=== PATIENT | female | born 1970 | race Hispanic/Latino ===

== ENCOUNTER 2021-01-13 04:34 | Inpatient (IN) | payer OTHER, SELFPAY ==
[~2021-01-13] VITALS: Ht 170.2 cm; Wt 105.3 kg
[~2021-01-13 04:34] MED LIST: NAPR-1023 PO
[2021-01-13 04:51] LABS: APPEARANCE,URINE Clear (CLEAR); BILIRUBIN,URINE Negative (NEGATIVE); COLOR,URINE Yellow (YELLOW); GLUCOSE, URINE (UA) Negative (NEGATIVE); KETONES,URINE Negative (NEGATIVE); LEUKOCYTE ESTERASE ,URINE Moderate (NEGATIVE); NITRATE,URINE Negative (NEGATIVE); OCCULT BLOOD,URINE Negative (NEGATIVE); PROTEIN,URINE Negative (NEGATIVE); UROBILINOGEN,URINE 0.2 mg/dL (0.2-1.0)
[2021-01-13 05:00] LABS: BASOPHILS % (AUTO) 0.4 % (0.0-5.0); EOSINOPHILS % (AUTO) 0.1 % (0.0-8.0); HEMATOCRIT 45.2 % (36-48); LYMPHOCYTES % (AUTO) 5.8 % (21.0-51.0); MEAN CORPUSCULAR HEMOGLOBIN 28.5 pg (27.0-33.0); MEAN CORPUSCULAR HGB CONC 34.1 g/dL (32.0-36.0); MEAN CORPUSCULAR VOLUME 83.5 fL (79-99); NEUTROPHILS % (AUTO) 91.3 % (40.0-77.0); PLATELET COUNT (AUTO) 267 K/uL (130-400); RED BLOOD CELL COUNT(AUTO) 5.41 MIL/uL (4.00-5.50); RED CELL DISTRIBUTION WIDTH 14.1 % (11.0-15.5); WHITE BLOOD COUNT (AUTO) 15.7 K/uL (4.8-10.8)
[2021-01-13] MEDS ORDERED: KETOROLAC TROMETHAMINE 30MG/ML ONE (05:04)
[2021-01-13 05:12] LABS: CREATININE 1.2 mg/dL (0.5-1.5); POTASSIUM 3.5 mmol/L (3.5-5.1)
[2021-01-13 05:14] LABS: ALBUMIN 3.6 g/dL (3.5-5.0); BILIRUBIN,TOTAL 0.5 mg/dL (0.2-1.0); TOTAL PROTEIN, SERUM 7.9 g/dL (6.0-8.3)
[2021-01-13 05:17] LABS: BACTERIA,URINE Few /HPF (None Seen); SQUAMOUS EPITHELIAL CELL,UR 0-2 /HPF (0-2)
[2021-01-13] MEDS ORDERED: CEFTRIAXONE SODIUM 1 GM ONE ×2 (05:20→09:36)
[2021-01-13] MEDS ORDERED: ONDANSETRON HCL 4 MG/2 ML VIAL ONE ×2 (05:20→13:50)
[2021-01-13] MEDS ORDERED: TAMSULOSIN HCL 0.4 MG CAP.ER.24H ONE (08:32)
[2021-01-13] MEDS: CEFTRIAXONE SODIUM 1 GM IVP SCH (08:45)
[2021-01-13] MEDS ORDERED: ACETAMINOPHEN 325 MG TAB PO PRN (08:45)
[2021-01-13] MEDS: SODIUM CHLORIDE 0.9% 1000ML 1,000 ML IV SCH ×2 (08:45→20:12)
[2021-01-13] MEDS ORDERED: SODIUM CHLORIDE 0.9% 1000ML 1,000 ML IV ONE (09:37)
[2021-01-13] MEDS: ZOSYN 3.375GM+NS 50ML 50 ML IV SCH ×2 (10:45→18:45)
[2021-01-13] MEDS ORDERED: ZOSYN 3.375GM+NS 50ML 50 ML IV ONE (11:35)
[2021-01-13] MEDS ORDERED: MORPHINE SULFATE 2 MG/ML 1ML SYG ONE (13:51)
[2021-01-13 15:15] VITALS: BP 133/69
[2021-01-13 20:00] VITALS: BP 127/75
[2021-01-13] MEDS: FAMOTIDINE/PF 20 MG/2 ML VIAL IV SCH (20:11)
[2021-01-13] MEDS: ONDANSETRON HCL 4 MG/2 ML VIAL IVP PRN (22:17)
[2021-01-13] MEDS: MORPHINE SULFATE 2 MG/ML 1ML SYG IVP PRN (22:17)
[2021-01-14] VITALS (21 sets, daily range): BP systolic 97–130; BP diastolic 44–80
[2021-01-14] MEDS: ZOSYN 3.375GM+NS 50ML 50 ML IV SCH ×3 (02:36→22:39)
[2021-01-14] MEDS: SODIUM CHLORIDE 0.9% 1000ML 1,000 ML IV SCH ×3 (04:07→14:22)
[2021-01-14 05:11] LABS: BASOPHILS % (AUTO) 0.3 % (0.0-5.0); EOSINOPHILS % (AUTO) 0.4 % (0.0-8.0); HEMATOCRIT 37.6 % (36-48); LYMPHOCYTES % (AUTO) 12.5 % (21.0-51.0); MEAN CORPUSCULAR VOLUME 85.1 fL (79-99); MONOCYTES % (AUTO) 10.1 % (3.0-13.0); NEUTROPHILS % (AUTO) 76.4 % (40.0-77.0); PLATELET COUNT (AUTO) 203 K/uL (130-400); RED BLOOD CELL COUNT(AUTO) 4.42 MIL/uL (4.00-5.50); RED CELL DISTRIBUTION WIDTH 14.3 % (11.0-15.5); WHITE BLOOD COUNT (AUTO) 14.5 K/uL (4.8-10.8)
[2021-01-14 05:15] LABS: INR 1.13 (0.85-1.15); PROTHROMBIN TIME 12.2 SEC (9.6-11.6)
[2021-01-14 05:16] LABS: PARTIAL THROMBOPLASTIN TIME 29.6 SEC (26.3-35.5)
[2021-01-14 05:36] LABS: ALBUMIN 2.7 g/dL (3.5-5.0); BILIRUBIN,TOTAL 1.1 mg/dL (0.2-1.0); CREATININE 0.9 mg/dL (0.5-1.5); POTASSIUM 3.3 mmol/L (3.5-5.1); TOTAL PROTEIN, SERUM 6.5 g/dL (6.0-8.3)
[2021-01-14] MEDS ORDERED: POTASSIUM CHLORIDE 20MEQ/100ML 100 ML IV ONE (06:24)
[2021-01-14] MEDS ORDERED: LIDOCAINE HCL-MPF 1% 2ML VIAL ONE (06:24)
[2021-01-14] MEDS ORDERED: POTASSIUM CHLORIDE 20MEQ/100ML 100 ML IV PRN (06:30)
[2021-01-14] MEDS ORDERED: POTASSIUM CHLORIDE 20 MEQ ERTAB PO PRN (06:30)
[2021-01-14] MEDS ORDERED: LIDOCAINE HCL-MPF 1% 2ML VIAL IV PRN (06:30)
[2021-01-14] MEDS ORDERED: POTASSIUM CHLORIDE 10% ELIXIR 20 MEQ/15 ML UDCUP PO PRN (06:30)
[2021-01-14] MEDS: CEFTRIAXONE SODIUM 1 GM IVP SCH (08:11)
[2021-01-14] MEDS: ENOXAPARIN SODIUM 30 MG/0.3 ML SQ SCH (08:11)
[2021-01-14] MEDS: FAMOTIDINE/PF 20 MG/2 ML VIAL IV SCH ×2 (08:11→19:52)
[2021-01-14] MEDS ORDERED: IOHEXOL-350 50ML VIAL IV ONE (12:25)
[2021-01-14] MEDS ORDERED: ROCURONIUM 10MG/1ML SYR 10 MG/ML ML ONE (12:58)
[2021-01-14] MEDS ORDERED: PROPOFOL 10 MG/ML 20ML VIAL IV ONE (12:58)
[2021-01-14] MEDS ORDERED: LIDOCAINE PF 2% 5ML ABBOJECT ONE (12:58)
[2021-01-14] MEDS ORDERED: FENTANYL CITRATE PF 50 MCG/1 ML 2ML VIAL ONE (12:58)
[2021-01-14] MEDS ORDERED: SUCCINYLCHOLINE 200MG/10ML SYR ONE (12:58)
[2021-01-14] MEDS ORDERED: GLYCOPYRROLATE 1 MG/5 ML SYRINGE ONE (13:58)
[2021-01-14] MEDS ORDERED: NEOSTIGMINE 5MG/5ML SYR IV ONE (13:59)
[2021-01-14] MEDS ORDERED: ONDANSETRON HCL 4 MG/2 ML VIAL ONE (14:06)
[2021-01-14] MEDS ORDERED: KETOROLAC TROMETHAMINE 30MG/ML ONE (14:06)
[2021-01-14] MEDS: OXYBUTYNIN CHLORIDE 5 MG TABLET PO SCH (22:39)
[2021-01-14] MEDS: PHENAZOPYRIDINE HCL 200 MG TABLET PO SCH (22:39)
[2021-01-14] MEDS: ONDANSETRON HCL 4 MG/2 ML VIAL IVP PRN (22:39)
[2021-01-14] MEDS: MORPHINE SULFATE 2 MG/ML 1ML SYG IVP PRN (22:40)
[2021-01-15] MEDS: SODIUM CHLORIDE 0.9% 1000ML 1,000 ML IV SCH ×2 (00:08→10:45)
[2021-01-15 04:00] VITALS: BP 122/80
[2021-01-15 04:53] LABS: HEMATOCRIT 35.4 % (36-48); MEAN CORPUSCULAR HEMOGLOBIN 28.6 pg (27.0-33.0); MEAN CORPUSCULAR HGB CONC 33.6 g/dL (32.0-36.0); MEAN CORPUSCULAR VOLUME 85.1 fL (79-99); RED BLOOD CELL COUNT(AUTO) 4.16 MIL/uL (4.00-5.50); RED CELL DISTRIBUTION WIDTH 14.5 % (11.0-15.5); WHITE BLOOD COUNT (AUTO) 11.6 K/uL (4.8-10.8)
[2021-01-15 05:01] LABS: CREATININE 0.9 mg/dL (0.5-1.5); POTASSIUM 3.3 mmol/L (3.5-5.1)
[2021-01-15] MEDS: ZOSYN 3.375GM+NS 50ML 50 ML IV SCH (05:05)
[2021-01-15] MEDS ORDERED: POTASSIUM CHLORIDE 20 MEQ ERTAB PO SCH (08:00)
[2021-01-15 08:03] VITALS: BP 141/85
[2021-01-15] MEDS ORDERED: LEVO500T89 PO (08:17)
[2021-01-15] MEDS ORDERED: PHEN-948 PO (08:17)
[2021-01-15] MEDS ORDERED: OXYB5 PO (08:17)
[2021-01-15] MEDS ORDERED: LEVOFLOXACIN 500 MG TABLET PO SCH (09:00)
[2021-01-15] MEDS: PHENAZOPYRIDINE HCL 200 MG TABLET PO SCH (10:23)
[2021-01-15] MEDS: OXYBUTYNIN CHLORIDE 5 MG TABLET PO SCH (10:23)
[2021-01-15] MEDS: ENOXAPARIN SODIUM 30 MG/0.3 ML SQ SCH (10:24)
[2021-01-15 11:11] VITALS: BP 127/82
== END 2021-01-15 14:00 | disposition home or self-care (01) | DRG 854 ==
LOC: EDH 04:34 → EDHIP 04:35 → 3AH 15:12
PROVIDERS: ADMIT Internal Medicine; ATTEND Internal Medicine
PROC: 0T768DZ Dilation of Right Ureter with Intraluminal Device, Via Natural or Artificial Opening Endoscopic (ICD-10-PCS; principal; 2021-01-14 13:12)
PROC: 0TC68ZZ Extirpation of Matter from Right Ureter, Via Natural or Artificial Opening Endoscopic (ICD-10-PCS; 2021-01-14 13:12)
DX: A41.9 Sepsis, unspecified organism (principal); N13.6 Pyonephrosis; M43.16 Spondylolisthesis, lumbar region; M47.9 Spondylosis, unspecified; N30.80 Other cystitis without hematuria; Z20.822 Contact with and (suspected) exposure to COVID-19; Z79.82 Long term (current) use of aspirin; Z79.899 Other long term (current) drug therapy; Z83.3 Family history of diabetes mellitus; Z82.5 Family history of asthma and other chronic lower respiratory diseases; Z82.3 Family history of stroke; Z82.0 Family history of epilepsy and other diseases of the nervous system; Z82.49 Family history of ischemic heart disease and other diseases of the circulatory system
CPT/HCPCS: 36415; 74018; 74176; 80048; 80053; 81001; 82360; 83690; 84145; 85025; 85027; 85610; 85730; 87077; 87088; 87186; 87426; A4606; G0378; J0330; J0696; J1650; J1885; J2001; J2405; J2543; J2704; J2710; J3010; J3480; J3490; J7030; Q9967